=== PATIENT | male | born 1985 | race Caucasian/White ===

== ENCOUNTER 2022-12-28 15:29 | Emergency (ER) | payer BC ==
[2022-12-28 15:36] VITALS: BP 142/92; PULSE 91; RESP 18; TEMP 98.2; BMI 29.9
== END 2022-12-28 18:40 | disposition home or self-care (01) ==
LOC: JERFT 15:29
DX: M25.512 Pain in left shoulder (principal); M25.562 Pain in left knee; V43.52XA Car driver injured in collision with other type car in traffic accident, initial encounter; Y92.410 Unspecified street and highway as the place of occurrence of the external cause
CPT/HCPCS: 73030-TC-LT-FY; 73562-TC-LT-FY; 99283-25